=== PATIENT | female | born 1960 | race Caucasian/White ===

== ENCOUNTER 2018-05-21 20:00 | Emergency (ER) | payer OTHER, SELFPAY ==
[2018-05-21 20:15] VITALS: BP 143/82; PULSE 70; RESP 16; TEMP 36.6; O2SAT 99
--- NOTE | 2018-05-21 20:21 | ED.ALLEREA ---
HPI - Allergic Reaction <VIKRAM Rouse - Last Filed: 05/21/18 21:49> General Chief complaint: Allergic Reaction Stated complaint: HORNET STING BY RT EYE Time Seen by Provider: 05/21/18 20:21 History of Present Illness HPI narrative: 58-year-old female here for complaint of having a hornet sting to her right side of the face lateral to her right eye. She states that she has had swelling to the area since she got stung there this morning. She states she has some burning into her right eye. She denies any visual changes. She denies any tightness in his throat no shortness of breath no chest pain. She reports that she has been stung by a hornet over week ago and was treated with oral steroids. She denies any other concerns or complaints at this time. Related Data Home Medications Medication Instructions Recorded Confirmed hydroxyzine HCl 10 mg PO HS PRN #0 06/24/17 05/10/18 cyclosporine [Restasis] 1 drp OPHTH #0 08/29/17 05/10/18 Previous Rx's Medication Instructions Recorded esomeprazole magnesium 40 mg PO QDAY #60 cap 07/14/17 sertraline 50 mg PO QDAY #90 tab 08/22/17 levothyroxine [Synthroid] 50 mcg PO QDAY #90 tab 01/24/18 montelukast 10 mg tablet 10 mg PO QDAY #90 tab 04/25/18 zolpidem 10 mg tablet 10 mg PO .HSP #30 tab 05/08/18 methylprednisolone 4 mg tablets in See Label Instructions PO PER PKG 05/10/18 a dose pack DIR #21 each prednisone 40 mg PO DAILY #4 tab 05/21/18 Allergies Allergy/AdvReac Type Severity Reaction Status Date / Time Sulfa (Sulfonamide Allergy Intermediate RASH WITH Verified 05/10/18 11:30 Antibiotics) SULFA [SULFA (SULFONAMIDE ANTIBIOTICS)] Penicillins [PENICILLINS] Allergy Unknown Verified 05/10/18 11:30 sensitive to narcotics Allergy Intermediate ITCHY Uncoded 02/12/18 12:34 Review of Systems <VIKRAM Rouse - Last Filed: 05/21/18 21:49> Constitutional Denies chills, Denies fever(s), Denies lethargy and Denies weakness Eyes Denies change in vision, Denies eye discharge, Denies irritation and Denies loss of vision ENT Ears, Nose, Mouth, and Throat: Denies change in voice, Denies neck pain and Denies sore throat Cardiovascular Denies dyspnea and Denies dyspnea on exertion Respiratory Denies cough, Denies dyspnea, Denies dyspnea on exertion and Denies wheezing Gastrointestinal Gastrointestinal: Denies abdominal pain, Denies change in bowel habits, Denies diarrhea, Denies nausea and Denies vomiting Genitourinary Denies hematuria, Denies flank pain, Denies urinary incontinence and Denies urinary urgency Musculoskeletal Denies neck pain Integumentary/Breasts Comments: Hornet sting to right face lateral to right eye Neurologic Denies loss of vision and Denies weakness Allergic/Immunologic Denies wheezing Exam <VIKRAM Rouse - Last Filed: 05/21/18 21:49> Initial Vital Signs Initial Vital Signs: Vital Signs Temperature 97.8 F 05/21/18 20:15 Pulse Rate 70 05/21/18 20:15 Respiratory Rate 16 05/21/18 20:15 Blood Pressure 143/82 H 05/21/18 20:15 Pulse Oximetry 99 05/21/18 20:15 Const General: cooperative and well developed Nutritional Appearance: well nourished Orientation: alert, awake, oriented x3 and not confused HENVT Head: other (Erythema and redness to right face lateral to right orbit and to zygomatic area) Mouth: oropharynx normal and moist mucous membranes Eyes Periorbital: periorbital findings abnormal (Swelling to right lateral javi orbital area) right Eyelids: eyelid abnormality (Swelling to right upper eyelid) Conjunctivae: conjunctivae normal Pupils: PERRL EOM: EOM intact bilaterally Resp Effort & Inspection: normal respiratory effort, able to speak in complete sentences, no respiratory distress and no use of accessory muscles Auscultation: clear to auscultation bilaterally, no rales, no rhonchi and no wheezes Cardio Rate: regular rate Rhythm: regular rhythm Heart Sounds: no click, no gallops, no murmurs and no rubs Skin General: no rashes or lesions noted, No jaundice and No petechiae Neuro General: alert, oriented x3, gait normal and no focal motor deficits Speech: speech normal <Kai Francisco DO - Last Filed: 05/22/18 03:44> Initial Vital Signs Initial Vital Signs: Vital Signs Temperature 97.8 F 05/21/18 20:15 Pulse Rate 70 05/21/18 20:15 Respiratory Rate 16 05/21/18 20:15 Blood Pressure 143/82 H 05/21/18 20:15 Pulse Oximetry 99 05/21/18 20:15 Course <VIKRAM Rouse - Last Filed: 05/21/18 21:49> Orders Ordered: Discontinued Medications Prednisone (Deltasone) 40 mg PO NOW ONE Stop: 05/21/18 20:40 Last Admin: 05/21/18 20:48 Dose: 40 mg Vital Signs - 8 hr 05/21/18 20:15 05/21/18 21:22 Temperature 97.8 F Pulse Rate 70 74 Respiratory Rate 16 18 Blood Pressure 143/82 H 120/74 Pulse Oximetry 99 98 <Kai Francisco DO - Last Filed: 05/22/18 03:44> Orders Ordered: Discontinued Medications Prednisone (Deltasone) 40 mg PO NOW ONE Stop: 05/21/18 20:40 Last Admin: 05/21/18 20:48 Dose: 40 mg Vital Signs - 8 hr 05/21/18 20:15 05/21/18 21:22 Temperature 97.8 F Pulse Rate 70 74 Respiratory Rate 16 18 Blood Pressure 143/82 H 120/74 Pulse Oximetry 99 98 MDM - Allergic Reaction <VIKRAM Rouse - Last Filed: 05/21/18 21:49> MDM Narrative Medical decision making narrative: Signs and symptoms limited to localized response to the right face area. No systemic symptoms at this time. She is prescribed prednisone for 3 days to help with inflammation. Patient artery takes Zyrtec will have her continue taking Zyrtec for antihistamine prospects. [id number] ibuprofen as needed for anti inflammation and discomfort. Visual acuity was normal. Cold packs to the area several times a day over the next few days also help with symptoms. Follow up with primary care provider in the next few days for re-evaluation. For any worsening symptoms return to the emergency room. Discharge Plan Departure Patient Disposition: Home, Self-Care Clinical Impression: Right facial swelling, Accidental insect sting Discharge Date/Time: 05/21/18 21:22 Interventions: ED Discharge Assessment Last Done: 05/21/18 21:22 Instructions: How to Care for an Insect Bite or Sting Activity Restrictions/Additional Instructions: Signs and symptoms present as localized response due to the hornet sting that was received earlier today. Use prednisone as prescribed over the next couple of days to help with inflammation. Continue to use her Zyrtec as prescribed as well for antihistamine properties. Use [id number] ibuprofen for anti inflammatory affects and for discomfort. Cold packs to the area several times a day over the next few days to help with symptoms. Follow up with her primary care provider. For any worsening symptoms return to the emergency room. Prescription was electronically sent to [facility] Prescriptions: New prednisone 20 mg tablet 40 mg PO DAILY Qty: 4 RF: 0 No Action methylprednisolone [Medrol (Mg)] 4 mg tablets,dose pack See Label Instructions PO PER PKG DIR Qty: 21 RF: 0 hydroxyzine HCl 10 MG tablet 10 mg PO HS PRNQty: 0 RF: 0 esomeprazole magnesium 20 MG capsule,delayed release(DR/EC) 40 mg PO QDAY Qty: 60 RF: 1 sertraline 50 MG tablet 50 mg PO QDAY Qty: 90 RF: 3 cyclosporine [Restasis] 1 EACH dropperette 1 drp OPHTH Qty: 0 RF: 0 levothyroxine [Synthroid] 50 MCG tablet 50 mcg PO QDAY Qty: 90 RF: 1 montelukast [Singulair] 10 mg tablet 10 mg PO QDAY Qty: 90 RF: 0 zolpidem [Ambien] 10 mg tablet 10 mg PO .HSP Qty: 30 RF: 0 Referrals: Matty Arreguin MD [Primary Care Provider] - <Kai Francisco DO - Last Filed: 05/22/18 03:44> Cosign ED Attending Vernon Attestation: I was immediately available in the department for consultation. Documentation has been reviewed. I agree with assessment and plan.
[2018-05-21] MEDS: predniSONE 20 MG TABLET 40 MG PO (20:48)
[2018-05-21 21:22] VITALS: BP 120/74; PULSE 74; RESP 18; O2SAT 98
== END 2018-05-21 21:22 | disposition home or self-care (01) ==
PROVIDERS: Emergency Provider Nurse Practitioner Family; Family Provider Family Medicine; PCP Family Medicine
DX: T63.441A Toxic effect of venom of bees, accidental (unintentional), initial encounter (principal); R22.0 Localized swelling, mass and lump, head
CPT/HCPCS: 99283

== ENCOUNTER → 2018-12-03 09:25 | Outpatient (CLI) | payer OTHER, SELFPAY | PROVIDERS: Family Provider Family Medicine; PCP Family Medicine; Visit Provider Physician Assistant | DX: R39.9 Unspecified symptoms and signs involving the genitourinary system (principal) | CPT/HCPCS: 87077; 87086; 87186 ==

== ENCOUNTER → 2018-12-11 13:45 | Outpatient (CLI) | payer OTHER, SELFPAY ==
[2018-12-11 14:10] LABS: Influenza A and B by PCR Rapid Negative (Negative)
== END ==
PROVIDERS: Family Provider Family Medicine; Visit Provider Physician Assistant
DX: R68.89 Other general symptoms and signs (principal); R53.83 Other fatigue
CPT/HCPCS: 87400

== ENCOUNTER → 2018-12-11 13:56 | Outpatient (CLI) | payer OTHER, SELFPAY ==
[2018-12-11 14:37] LABS: Add Manual Diff / Slide Review NO; Basophils Absolute Auto 0 /uL (0-100); Basophils Percent Auto 0.5 % (0-2); Eosinophils Absolute Auto 200 /uL (0-450); Hematocrit 42.6 % (36-46); Hemoglobin 14.6 g/dL (12.0-16.0); Lymphocytes Absolute Auto 2000 /uL (1100-4500); Mean Corpuscular HGB Conc 34.1 % (30-36); Mean Corpuscular Hemoglobin 31.3 PG (26-34); Mean Corpuscular Volume 91.6 fL (80-100); Monocytes Absolute Auto 600 /uL (0-900); Monocytes Percent Auto 7.1 % (3-14); Neutrophils Absolute Auto 5500 /uL (1500-7000); Neutrophils Percent Auto 66.4 % (50-75); Platelet Count 383 X10^3/uL (150-400); Red Blood Cell Count 4.66 X10^6/uL (4.0-5.2); Red Cell Distribution Width 12.7 % (11.6-14.8); White Blood Cell Count 8.2 X10^3/uL (4.5-11.0)
[2018-12-11 15:02] LABS: Alanine Aminotransferase 49 IU/L (9-52); Albumin Globulin Ratio 1.3 (1.0-2.8); Alkaline Phosphatase 106 U/L (38-126); Aspartate Aminotransferase 32 IU/L (14-36); BUN Creatinine Ratio 32.5 (6-22); Bilirubin Total 0.3 mg/dL (0.2-1.3); Blood Urea Nitrogen 26 mg/dL (7-17); Calcium 10.2 mg/dL (8.4-10.2); Carbon Dioxide 23 mmol/L (22-32); Chloride 103 mmol/L (98-107); Estimated Glomerular Filt Rate > 60.0 mL/min (>60); Globulin 3.8 g/dL (1.7-4.1); Glucose 95 mg/dL (70-100); HEMOLYSIS < 15 (0-50); Potassium 4.8 mmol/L (3.4-5.1); Sodium 138 mmol/L (137-145); Total Protein 8.8 g/dL (6.3-8.2)
[2018-12-11 15:33] LABS: TSH w/ Reflex to FT4 1.88 uIU/mL (0.47-4.68)
== END ==
PROVIDERS: PCP Student in an Organized Health Care Education/Training Program; Visit Provider Physician Assistant
DX: R53.83 Other fatigue (principal)
CPT/HCPCS: 36415; 80053; 84443; 85025; 87400

== ENCOUNTER → 2020-04-20 08:00 | Outpatient (CLI) | payer OTHER, SELFPAY ==
[2020-04-20 08:47] LABS: Add Manual Diff / Slide Review NO; Basophils Absolute Auto 0 /uL (0-100); Basophils Percent Auto 0.4 % (0-2); Eosinophils Absolute Auto 100 /uL (0-450); Eosinophils Percent Auto 2.5 % (2-4); Hematocrit 41.1 % (36-46); Hemoglobin 14.1 g/dL (12.0-16.0); Lymphocytes Absolute Auto 1600 /uL (1100-4500); Lymphocytes Percent Auto 28.9 % (25-40); Mean Corpuscular HGB Conc 34.2 % (30-36); Mean Corpuscular Hemoglobin 31.7 PG (26-34); Mean Corpuscular Volume 92.7 fL (80-100); Monocytes Absolute Auto 400 /uL (0-900); Monocytes Percent Auto 8.2 % (3-14); Neutrophils Absolute Auto 3200 /uL (1500-7000); Platelet Count 288 X10^3/uL (150-400); Red Blood Cell Count 4.44 X10^6/uL (4.0-5.2); Red Cell Distribution Width 13.1 % (11.6-14.8); White Blood Cell Count 5.4 X10^3/uL (4.5-11.0)
[2020-04-20 09:11] LABS: Alanine Aminotransferase 35 IU/L (<35); Albumin 4.8 g/dL (3.5-5.0); Albumin Globulin Ratio 1.7 (1.0-2.8); Alkaline Phosphatase 65 U/L (38-126); Aspartate Aminotransferase 33 IU/L (14-36); BUN Creatinine Ratio 35.9 (6-22); Bilirubin Total 0.5 mg/dL (0.2-1.3); Blood Urea Nitrogen 23 mg/dL (7-17); Calcium 10.3 mg/dL (8.4-10.2); Carbon Dioxide 24 mmol/L (22-32); Chloride 105 mmol/L (98-107); Estimated Glomerular Filt Rate > 60.0 mL/min (>60); Globulin 2.8 g/dL (1.7-4.1); Glucose 87 mg/dL (80-110); HEMOLYSIS < 15 (0-50); Potassium 4.6 mmol/L (3.4-5.1); Sodium 138 mmol/L (137-145); Total Protein 7.6 g/dL (6.3-8.2)
[2020-04-20 09:27] LABS: Free T4, Direct Thyroxine 0.89 ng/dL (0.78-2.19)
[2020-04-20 09:41] LABS: Thyroid Stimulating Hormone 3.16 uIU/mL (0.47-4.68)
== END ==
PROVIDERS: PCP Family Medicine; Referring Provider Family Medicine; Visit Provider Family Medicine
DX: Z79.899 Other long term (current) drug therapy (principal); E03.9 Hypothyroidism, unspecified
CPT/HCPCS: 36415; 80053; 84439; 84443; 85025

== ENCOUNTER → 2020-11-08 14:43 | Outpatient (CLI) | payer OTHER, SELFPAY | PROVIDERS: PCP Family Medicine; Visit Provider Physician Assistant | DX: N34.3 Urethral syndrome, unspecified (principal) | CPT/HCPCS: 87086 ==

== ENCOUNTER → 2020-11-16 09:19 | Outpatient (CLI) | payer OTHER, SELFPAY | PROVIDERS: PCP Family Medicine; Visit Provider Nurse Practitioner | DX: N34.3 Urethral syndrome, unspecified (principal) | CPT/HCPCS: 87086 ==

== ENCOUNTER → 2021-01-05 09:50 | Outpatient (CLI) | payer OTHER, SELFPAY ==
[2021-01-05 11:51] LABS: Cholesterol 238 mg/dL (140-199); HDL Cholesterol 42 mg/dL (40-60); LDL Cholesterol Calculated 168 mg/dL (<100); Triglycerides 140 mg/dL (35-150)
== END ==
PROVIDERS: PCP Family Medicine; Referring Provider Family Medicine; Visit Provider Family Medicine
DX: Z13.220 Encounter for screening for lipoid disorders (principal)
CPT/HCPCS: 36415; 80061

== ENCOUNTER → 2021-01-10 15:34 | Outpatient (CLI) | payer OTHER, SELFPAY ==
--- NOTE | 2021-01-10 | DI.US.S_ITS ---
PROCEDURE: US ABDOMEN LIMITED INDICATIONS: RUQ PAIN TECHNIQUE: Real-time focused scanning was performed of the abdomen, with image documentation. COMPARISON: None. FINDINGS: Liver is diffusely increased in echogenicity. No focal hepatic abnormalities identified. Normal hepatic size. Focal fatty sparing adjacent to the gallbladder. 5 mm echogenic non mobile gallbladder wall focus likely a polyp.. IMPRESSION: 1. Increased hepatic echogenicity noted possibly related to hepatic steatosis but other sources of hepatocellular disease cannot be excluded. Recommend clinical correlation. 2. Probable 5 mm gallbladder polyp. Dictated by: Roman DODD Interpreted: Marilynn Rodriguez MD on 01/10/2021 at 16:41 Approved by: Marilynn Rodriguez M.D. on 01/10/2021 at 17:02
--- NOTE | 2021-01-10 | DI.MG.S_ITS ---
BILATERAL DIGITAL SCREENING MAMMOGRAM 3D/2D WITH CAD: 01/10/2021 CLINICAL: Routine screening. Comparison is made to exams dated: 06/14/2016 mammogram and 03/09/2013 mammogram - [facility]. The tissue of both breasts is heterogeneously dense. This may lower the sensitivity of mammography. Current study was also evaluated with a Computer Aided Detection (CAD) system. There is an asymmetry in the left breast middle depth lateral region seen on the craniocaudal view only. This is more prominent. No other significant masses, calcifications, or other findings are seen in either breast. IMPRESSION: INCOMPLETE: NEEDS ADDITIONAL IMAGING EVALUATION The asymmetry in the left breast is indeterminate. Additional views with possible ultrasound are recommended. This exam was interpreted at Station ID: [id number]. NOTE: For mammograms, a report in lay terms will be sent to the patient. Approximately 15% of breast malignancies will not be visualized mammographically. In the management of a palpable breast mass, a negative mammogram must not discourage biopsy of a clinically suspicious lesion. Electronically Signed By: Ashok [email or web address]:01/10/2021 17:01:34 copy to: FELIX ESCALONA letter sent: Additional Imaging Needed ACR BI-RADS Category 0: Incomplete [id number]
== END ==
PROVIDERS: PCP Family Medicine; Referring Provider Family Medicine; Visit Provider Family Medicine
DX: Z12.31 Encounter for screening mammogram for malignant neoplasm of breast (principal); R10.11 Right upper quadrant pain
CPT/HCPCS: 76705; 77063; 77067

== ENCOUNTER → 2021-01-20 13:12 | Outpatient (CLI) | payer OTHER, SELFPAY ==
--- NOTE | 2021-01-20 | DI.MG.S_ITS ---
UNILATERAL LEFT DIGITAL DIAGNOSTIC MAMMOGRAM 3D/2D WITH ADDITIONAL VIEWS: 01/20/2021 CLINICAL: Additional evaluation requested from prior study. Comparison is made to exams dated: 01/10/2021 mammogram - [facility], 06/14/2016 mammogram, and 03/09/2013 mammogram - [facility]. The tissue of left breast is heterogeneously dense. This may lower the sensitivity of mammography. There is an asymmetry in the left breast middle depth lateral region seen on the craniocaudal view only. This is less prominent and most likely represents normal fibroglandular tissue. No other significant masses or calcifications are seen in the breast. IMPRESSION: INCOMPLETE: NEEDS ADDITIONAL IMAGING EVALUATION The asymmetry in the left breast likely represents fibroglandular tissue and is indeterminate. An ultrasound is recommended and has been scheduled to immediately follow this exam. This exam was interpreted at Station ID: [id number]. NOTE: For mammograms, a report in lay terms will be sent to the patient. Approximately 15% of breast malignancies will not be visualized mammographically. In the management of a palpable breast mass, a negative mammogram must not discourage biopsy of a clinically suspicious lesion. Electronically Signed By: David Eugene M.D. jr/:01/20/2021 14:27:15 copy to: FELIX ESCALONA letter sent: Additional Imaging Needed ACR BI-RADS Category 0: Incomplete [id number]
--- NOTE | 2021-01-20 | DI.US.S_ITS ---
LIMITED ULTRASOUND OF LEFT BREAST: 01/20/2021 CLINICAL: Additional evaluation requested from prior study. Comparison is made to exams dated: 01/20/2021 mammogram, 01/10/2021 mammogram - [facility], 06/14/2016 mammogram, 03/09/2013 mammogram - [facility], 04/10/2010 mammogram, and 12/25/2005 mammogram - [facility]. Ultrasound of the left breast 11-2 o'clock region was performed. No shadowing mass or suspicious finding. There are two tiny cysts. IMPRESSION: NEGATIVE There is no sonographic evidence of malignancy. Return to annual mammogram screening schedule is recommended. This exam was interpreted at Station ID: [id number]. Electronically Signed By: David Eugene M.D. jr/:01/20/2021 14:26:14 copy to: FELIX ESCALONA letter sent: Normal Exam Ultrasound BI-RADS: 1 Negative
== END ==
PROVIDERS: PCP Family Medicine; Referring Provider Family Medicine; Visit Provider Family Medicine
DX: R92.8 Other abnormal and inconclusive findings on diagnostic imaging of breast (principal)
CPT/HCPCS: 76642; 77065; G0279

== ENCOUNTER 2021-02-24 17:28 | Emergency (ER) | payer OTHER, SELFPAY ==
--- NOTE | 2021-02-24 17:39 | DI.RAD.S_ITS ---
PROCEDURE: XR CHEST 1V INDICATIONS: chest pain TECHNIQUE: One view of the chest was acquired. COMPARISON: [facility], , CHEST 1 VIEW, 10/29/2016, 0:51. FINDINGS: Surgical changes and devices: None. Lungs and pleura: Scattered subsegmental scarring and/or atelectasis. No acute consolidation. No pleural effusions or pneumothorax. Mediastinum: Mediastinal contours appear normal. Heart size is normal. Bones and chest wall: No suspicious bony lesions. Overlying soft tissues appear unremarkable. IMPRESSION: No acute disease. Dictated by: Andre Dunaway M.D. on 02/24/2021 at 18:06 Approved by: Andre Dunaway M.D. on 02/24/2021 at 18:23
[2021-02-24 17:45] VITALS: BP 169/77; PULSE 75; RESP 17; TEMP 36.3; O2SAT 100
--- NOTE | 2021-02-24 17:56 | ED.CHESTPAIN ---
HPI - Chest Pain General Chief Complaint: Chest Pain Stated Complaint: chest pain,Right arm numbness, SOB Time Seen by Provider: 02/24/21 17:55 Source: patient Mode of arrival: Ambulatory Limitations: no limitations History of Present Illness HPI narrative: 61-year-old female nonsmoker with history of hypothyroid and bronchospasm presents with a chief complaint of multiple episodes of chest squeezing and pain over the last month if not more. She denies any exertional component to her symptoms nor does she have radiation of her pain, nausea, vomiting, dizziness, lightheadedness or trouble breathing. She states that seems to be very tightly linked to when she has a stressful day at work. She most recently had discomfort that woke her up at about 3:00 a.m. this morning and lasted few hours. She went through the course of the rest of the day without any ongoing pain. She denies any recent travel, injury, history of blood clot or known cancer. MD complaint: chest pain Onset (ago): month(s) Duration: intermittent Onset: during rest Pain location: left chest Severity: mild Quality: aching Pain radiation: none Relieving factors: nothing Exacerbating factors: nothing Treatments prior to arrival chest pain: none Related Data On Oral Contraceptives: No Home Medications Medication Instructions Recorded Confirmed hydroxyzine HCl 10 mg PO HS PRN #0 06/24/17 11/16/20 Xiidra EYE-BOTH BID 12/03/18 11/16/20 omeprazole 20 mg tablet,delayed 20 mg PO DAILY 12/03/18 11/16/20 release Previous Rx's Medication Instructions Recorded levothyroxine [Synthroid] 50 mcg PO QDAY #90 tab 07/04/18 montelukast 10 mg tablet 10 mg PO QDAY #90 tab 10/17/18 zolpidem 10 mg tablet 10 mg PO BEDTIME #30 tab 11/13/18 sertraline 50 mg tablet 50 mg PO QDAY #30 tab 12/09/18 estradiol 1 mg tablet 1.5 mg PO DAILY #135 tab 09/22/20 hydroxyzine HCl 10 mg tablet 10 mg PO TID-QID PRN #20 tab 11/16/20 Allergies Allergy/AdvReac Type Severity Reaction Status Date / Time Sulfa (Sulfonamide Allergy Intermediate RASH WITH Verified 11/16/20 09:34 Antibiotics) SULFA [SULFA (SULFONAMIDE ANTIBIOTICS)] Penicillins [PENICILLINS] Allergy Unknown Verified 11/16/20 09:34 sensitive to narcotics Allergy Intermediate ITCHY Uncoded 11/16/20 09:34 Review of Systems Constitutional Constitutional: Denies chills, Denies fatigue, Denies fever(s), Denies frequent falls, Denies lethargy and Denies weakness Eyes Eyes: Denies change in vision, Denies eye discharge, Denies irritation and Denies loss of vision ENT Ears, Nose, Mouth, and Throat: Denies change in voice, Denies dizziness, Denies neck pain, Denies sore throat and Denies throat swelling Cardiovascular Cardiovascular: Reports chest pain, Denies irregular heart rhythm, Denies lightheadedness, Denies palpitations, Denies dyspnea, Denies dyspnea on exertion and Denies orthopnea Respiratory Respiratory: Denies cough, Denies dyspnea, Denies dyspnea on exertion and Denies wheezing Gastrointestinal Gastrointestinal: Denies abdominal pain, Denies change in bowel habits, Denies diarrhea, Denies nausea and Denies vomiting Musculoskeletal Musculoskeletal: Denies neck pain and Denies numbness Integumentary/Breasts Skin/Breast: Denies pruritus, Denies erythema, Denies rash and Denies wounds Neurologic Neurologic: Denies behavioral changes, Denies confusion, Denies dizziness, Denies frequent falls, Denies loss of vision, Denies numbness and Denies weakness Psychiatric Psychiatric: Denies anxiety, Denies behavioral changes, Denies confusion, Denies depression, Denies homicidal ideation and Denies suicidal ideation Endocrine Endocrine: Denies fatigue, Denies flushing and Denies palpitations Hematologic/Lymphatic Hematologic/Lymphatic: Denies easy bruising Allergic/Immunologic Allergic/Immunologic: Denies urticaria, Denies throat swelling and Denies wheezing Patient History Medical History Dysuria Hayfever (~1969) Rheumatic fever (1973) Shoulder pain (1999) Subacromial impingement of right shoulder (~2010) Surgical History Anesthesia History of shoulder surgery (2010) History of total hysterectomy with removal of both tubes and ovaries (1991) History of ureter repair (1991) Family History Brother Age: 59 Diabetes mellitus Mental health problem Grandmother Cancer Diabetes mellitus Mother Diabetes mellitus Heart disease Hypertension High cholesterol Mental health problem Stroke Sister Age: 64 Diabetes mellitus Hypertension Father No problems noted. Grandfather No problems noted. Grandfather No problems noted. Grandmother No problems noted. Sister No problems noted. Social History Smoking Status: Never smoker Smoking Status: Never smoker alcohol intake frequency: holidays/special occasions only Substance Use Type: does not use Exam Narrative Exam Narrative: GENERAL: [61] year old patient appears stated age. Well-nourished, well-developed patient, in mild distress. HEAD: Atraumatic. Normocephalic. EYES: Pupils equal round and reactive. Extraocular motions intact. No scleral icterus. No injection or drainage. ENT: Nose without bleeding, purulent drainage. Throat without erythema, tonsillar hypertrophy or exudate. Airway patent. NECK: Trachea midline. Non tender CARDIOVASCULAR: Regular rate and rhythm without murmurs, gallops, or rubs. RESPIRATORY: Clear to auscultation. Breath sounds equal bilaterally. No wheezes, rales, or rhonchi. GASTROINTESTINAL: Abdomen soft, non-tender, nondistended. EXTREMITIES: No edema or joint tenderness. BACK: Nontender without deformity or crepitance. No flank tenderness. NEURO: AOx3. SKIN: No rash or erythema of visible areas Initial Vital Signs Initial Vital Signs: Vital Signs Temperature 97.4 F L 02/24/21 17:45 Pulse Rate 75 02/24/21 17:45 Respiratory Rate 17 02/24/21 17:45 Blood Pressure 169/77 H 02/24/21 17:45 Pulse Oximetry 100 02/24/21 17:45 Course Orders Ordered: ED Orders 02/24/21 17:39 XR chest 1V Stat EKG-12 Lead Stat 02/24/21 17:52 Complete Blood Count AUTO DIFF Stat Comprehensive Metabolic Panel Stat D Dimer Stat Lipase Stat Magnesium Stat Partial Thromboplastin Time Stat Prothrombin Time INR Stat Troponin & CK Cardiac Panel Stat Discontinued Medications Aspirin (Aspirin 81 Mg Chew Tab) 324 mg PO NOW ONE Stop: 02/24/21 18:16 Last Admin: 02/24/21 18:18 Dose: 324 mg Documented by: CAROLIN Vital Signs Vital signs: Vital Signs - 8 hr 02/24/21 17:45 02/24/21 18:20 02/24/21 18:30 Temperature 97.4 F L Pulse Rate 75 75 62 Respiratory Rate 17 16 17 Blood Pressure 169/77 H 116/88 Pulse Oximetry 100 98 97 02/24/21 18:45 02/24/21 19:00 Temperature Pulse Rate 60 63 Respiratory Rate 16 15 Blood Pressure Pulse Oximetry 98 98 MDM - Chest Pain Lab Data Result diagrams: 02/24/21 17:52 02/24/21 17:52 Labs: Lab Results 02/24/21 02/24/21 02/24/21 Range/Units 17:52 17:52 17:52 WBC 6.7 (4.5-11.0) X10^3/uL RBC 4.22 (4.0-5.2) X10^6/uL Hgb 12.9 (12.0-16.0) g/dL Hct 38.4 (36-46) % MCV 91.1 (80-100) fL MCH 30.6 (26-34) PG MCHC 33.6 (30-36) % RDW 13.2 (11.6-14.8) % Plt Count 296 (150-400) X10^3/uL Neut % (Auto) 58.0 (50-75) % Lymph % (Auto) 29.8 (25-40) % [place] % (Auto) 9.9 (3-14) % Eos % (Auto) 1.9 L (2-4) % Baso % (Auto) 0.4 (0-2) % Neut # (Auto) 3900 (9387-9176) /uL Lymph # (Auto) 2000 (6706-2767) /uL [place] # (Auto) 700 (0-900) /uL Eos # (Auto) 100 (0-450) /uL Baso # (Auto) 0 (0-100) /uL PT 11.9 (10.1-12.7) SECONDS INR 1.0 (0.9-1.3) APTT 37 H (26.4-36.2) SECONDS D-Dimer (<230) ng/mL Sodium 142 (137-145) mmol/L Potassium 4.5 (3.4-5.1) mmol/L Chloride 106 (98-107) mmol/L Carbon Dioxide 25 (22-32) mmol/L BUN 21 H (7-17) mg/dL Creatinine 0.61 (0.52-1.04) mg/dL Estimated GFR > 60.0 (>60) mL/min BUN/Creatinine Ratio 34.4 H (6-22) Glucose 113 H (80-110) mg/dL Calcium 9.9 (8.4-10.2) mg/dL Magnesium 2.1 (1.6-2.3) mg/dL Total Bilirubin 0.3 (0.2-1.3) mg/dL AST 35 (14-36) IU/L ALT 24 (<35) IU/L Alkaline Phosphatase 43 (38-126) U/L Total Creatine Kinase 121 (30-135) U/L CK-MB (CK-2) 2.32 (<2.37) ng/mL CK-MB (CK-2) Rel Index 1.9 (1.5-5.0) % Troponin I < 0.012 (0.01-0.034) ng/mL Total Protein 7.7 (6.3-8.2) g/dL Albumin 4.8 (3.5-5.0) g/dL Globulin 2.9 (1.7-4.1) g/dL Albumin/Globulin Ratio 1.7 (1.0-2.8) Lipase 135 (23-300) U/L // Range/Units 17:52 WBC (4.5-11.0) X10^3/uL RBC (4.0-5.2) X10^6/uL Hgb (12.0-16.0) g/dL Hct (36-46) % MCV (80-100) fL MCH (26-34) PG MCHC (30-36) % RDW (11.6-14.8) % Plt Count (150-400) X10^3/uL Neut % (Auto) (50-75) % Lymph % (Auto) (25-40) % [place] % (Auto) (3-14) % Eos % (Auto) (2-4) % Baso % (Auto) (0-2) % Neut # (Auto) (4496-9872) /uL Lymph # (Auto) (5636-6489) /uL [place] # (Auto) (0-900) /uL Eos # (Auto) (0-450) /uL Baso # (Auto) (0-100) /uL PT (10.1-12.7) SECONDS INR (0.9-1.3) APTT (26.4-36.2) SECONDS D-Dimer < 200 (<230) ng/mL Sodium (137-145) mmol/L Potassium (3.4-5.1) mmol/L Chloride (98-107) mmol/L Carbon Dioxide (22-32) mmol/L BUN (7-17) mg/dL Creatinine (0.52-1.04) mg/dL Estimated GFR (>60) mL/min BUN/Creatinine Ratio (6-22) Glucose (80-110) mg/dL Calcium (8.4-10.2) mg/dL Magnesium (1.6-2.3) mg/dL Total Bilirubin (0.2-1.3) mg/dL AST (14-36) IU/L ALT (<35) IU/L Alkaline Phosphatase (38-126) U/L Total Creatine Kinase (30-135) U/L CK-MB (CK-2) (<2.37) ng/mL CK-MB (CK-2) Rel Index (1.5-5.0) % Troponin I (0.01-0.034) ng/mL Total Protein (6.3-8.2) g/dL Albumin (3.5-5.0) g/dL Globulin (1.7-4.1) g/dL Albumin/Globulin Ratio (1.0-2.8) Lipase (23-300) U/L Imaging Data Chest x-ray: Radiologist's Impression: Myla Perez Ifeoma 61 F [address] [id number] ReportSigned Patient: Myla Perez LMR#: [id number]: [id number]:[id number]/Sex: 61 / FDate of Service: 02/24/21Loc: EDAccession Number: [id number] Procedure: XR chest 1V Ordering Provider: Evelia Ramírez D.O. PROCEDURE: XR CHEST 1V INDICATIONS: chest pain TECHNIQUE: One view of the chest was acquired. COMPARISON: [facility], , CHEST 1 VIEW, 10/29/2016, 0:51. FINDINGS: Surgical changes and devices: None. Lungs and pleura: Scattered subsegmental scarring and/or atelectasis. No acute consolidation. No pleural effusions or pneumothorax. Mediastinum: Mediastinal contours appear normal. Heart size is normal. Bones and chest wall: No suspicious bony lesions. Overlying soft tissues appear unremarkable. IMPRESSION: No acute disease. Dictated by: Andre Dunaway M.D. on 02/24/2021 at 18:06 Approved by: Andre Dunaway M.D. on 02/24/2021 at 18:23 [facility] Narrative Medical decision making narrative: Multiple causes of chest pain considered including [place], PE, pneumothorax, pneumonia, aortic dissection, and pleurisy. Patient reports no radiation, no diaphoresis, no provocation with exertion, and no vomiting Patient's symptoms improved over duration of stay with above-stated therapies. Findings and discharge diagnosis discussed with patient/family followed by verbalization of understanding Return precautions discussed with patient/family whom verbalize understanding. Discharge Plan Departure Patient Disposition: Home Clinical Impression: Atypical chest pain, Chronic interstitial cystitis Instructions: DI for Atypical Chest Pain Activity Restrictions/Additional Instructions: *You have been diagnosed with [atypical chest pain. Your physical exam, lab work, EKG and x-ray are very reassuring] *What to do: *Take medications as directed *Follow up with your primary care provider in 2-3 days, call for an appointment. Let them know you were seen in the Emergency Department and that we ask that you be seen in follow up *Return to ER if you should have any new, worsening or concerning symptoms, such as [more persistent discomfort, shortness of breath, fever greater than 101 F, trouble with exertion or other bothersome symptoms] Prescriptions: No Action Xiidra EYE-BOTH BID RF: 0 omeprazole 20 mg tablet,delayed release (DR/EC) 20 mg PO DAILY RF: 0 hydroxyzine HCl 10 mg tablet 10 mg PO TID-QID PRN (Reason: bladder spasms) Qty: 20 RF: 0 hydroxyzine HCl 10 MG tablet 10 mg PO HS PRNQty: 0 RF: 0 levothyroxine [Synthroid] 50 mcg tablet 50 mcg PO QDAY Qty: 90 RF: 3 montelukast [Singulair] 10 mg tablet 10 mg PO QDAY Qty: 90 RF: 1 zolpidem [Ambien] 10 mg tablet 10 mg PO BEDTIME Qty: 30 RF: 0 sertraline 50 mg tablet 50 mg PO QDAY Qty: 30 RF: 0 estradiol 1 mg tablet 1.5 mg PO DAILY Qty: 135 RF: 1 Referrals: Matty Arreguin MD [Primary Care Provider] -
[2021-02-24 18:00] LABS: Add Manual Diff / Slide Review NO; Basophils Absolute Auto 0 /uL (0-100); Basophils Percent Auto 0.4 % (0-2); Eosinophils Absolute Auto 100 /uL (0-450); Eosinophils Percent Auto 1.9 % (2-4); Hematocrit 38.4 % (36-46); Hemoglobin 12.9 g/dL (12.0-16.0); Lymphocytes Absolute Auto 2000 /uL (1100-4500); Lymphocytes Percent Auto 29.8 % (25-40); Mean Corpuscular HGB Conc 33.6 % (30-36); Mean Corpuscular Hemoglobin 30.6 PG (26-34); Mean Corpuscular Volume 91.1 fL (80-100); Monocytes Absolute Auto 700 /uL (0-900); Monocytes Percent Auto 9.9 % (3-14); Neutrophils Absolute Auto 3900 /uL (1500-7000); Platelet Count 296 X10^3/uL (150-400); Red Blood Cell Count 4.22 X10^6/uL (4.0-5.2); Red Cell Distribution Width 13.2 % (11.6-14.8); White Blood Cell Count 6.7 X10^3/uL (4.5-11.0)
[2021-02-24 18:08] LABS: Prothrombin Time 11.9 SECONDS (10.1-12.7)
[2021-02-24 18:11] LABS: PTT Partial Thromboplastin Tim 37 SECONDS (26.4-36.2)
[2021-02-24 18:14] LABS: Alanine Aminotransferase 24 IU/L (<35); Albumin 4.8 g/dL (3.5-5.0); Albumin Globulin Ratio 1.7 (1.0-2.8); Alkaline Phosphatase 43 U/L (38-126); Aspartate Aminotransferase 35 IU/L (14-36); BUN Creatinine Ratio 34.4 (6-22); Bilirubin Total 0.3 mg/dL (0.2-1.3); Blood Urea Nitrogen 21 mg/dL (7-17); Calcium 9.9 mg/dL (8.4-10.2); Carbon Dioxide 25 mmol/L (22-32); Chloride 106 mmol/L (98-107); Creatine Kinase 121 U/L (30-135); Estimated Glomerular Filt Rate > 60.0 mL/min (>60); Globulin 2.9 g/dL (1.7-4.1); Glucose 113 mg/dL (80-110); Lipase 135 U/L (23-300); Magnesium 2.1 mg/dL (1.6-2.3); Sodium 142 mmol/L (137-145); Total Protein 7.7 g/dL (6.3-8.2)
[2021-02-24] MEDS: ASPIRIN 81 MG CHEW TAB 324 MG PO (18:18)
[2021-02-24 18:19] LABS: HEMOLYSIS 74 (0-50); Potassium 4.5 mmol/L (3.4-5.1)
[2021-02-24 18:20] VITALS: PULSE 75; RESP 16; O2SAT 98
[2021-02-24 18:24] LABS: D Dimer < 200 ng/mL (<230)
[2021-02-24 18:25] LABS: Troponin I < 0.012 ng/mL (0.01-0.034)
[2021-02-24 18:29] LABS: CKMB % Relative Index 1.9 % (1.5-5.0); Creatine Kinase MB 2.32 ng/mL (<2.37)
[2021-02-24 18:30] VITALS: BP 116/88; PULSE 62; RESP 17; O2SAT 97
[2021-02-24 18:45] VITALS: PULSE 60; RESP 16; O2SAT 98
[2021-02-24 19:00] VITALS: PULSE 63; RESP 15; O2SAT 98
== END 2021-02-24 19:05 | disposition home or self-care (01) ==
PROVIDERS: Emergency Medicine; Emergency Provider Emergency Medicine; PCP Family Medicine
DX: R07.89 Other chest pain (principal); N30.10 Interstitial cystitis (chronic) without hematuria
CPT/HCPCS: 36415; 71045; 80053; 82550; 82553; 83690; 83735; 84484; 85025; 85379; 85610; 85730; 93005; 93010; 99284

== ENCOUNTER → 2021-08-25 11:02 | Outpatient (CLI) | payer OTHER, SELFPAY ==
[2021-08-27 11:32] LABS: COVID19 Sendout Not Detected (Not Detect)
== END ==
PROVIDERS: PCP Family Medicine; Visit Provider Nurse Practitioner
DX: Z20.822 Contact with and (suspected) exposure to COVID-19 (principal)
CPT/HCPCS: 87635

== ENCOUNTER → 2021-09-20 09:37 | Outpatient (CLI) | payer OTHER, SELFPAY ==
[2021-09-20 10:27] LABS: COVID19 -Nasal RAPID Negative (Negative)
== END ==
PROVIDERS: PCP Family Medicine; Referring Provider Nurse Practitioner Family; Visit Provider Nurse Practitioner Family
DX: Z20.822 Contact with and (suspected) exposure to COVID-19 (principal); J31.2 Chronic pharyngitis
CPT/HCPCS: 87070; 87635

== ENCOUNTER → 2022-12-24 09:24 | Outpatient (CLI) | payer OTHER, SELFPAY | PROVIDERS: PCP Family Medicine; Visit Provider Physician Assistant | DX: N39.0 Urinary tract infection, site not specified (principal) | CPT/HCPCS: 87077; 87086; 87186 ==

== ENCOUNTER 2023-05-02 05:07 | Emergency (ER) | payer OTHER, SELFPAY ==
[2023-05-02 05:17] VITALS: BP 135/72; PULSE 81; RESP 18; TEMP 36; O2SAT 95; BMI 28.1
--- NOTE | 2023-05-02 05:18 | ED.GENADULT ---
HPI - General Adult General Chief complaint: Urogenital-Female Stated complaint: UTI Time Seen by Provider: 05/02/23 05:08 History of Present Illness HPI narrative: 63-year-old female nonsmoker with history of interstitial cystitis and prior urinary tract infections presents with a chief complaint of about 24 hours of dysuria, frequency and urgency. She states she is had multiple urine infections in his feels similar. She denies any fever or chills. She has not nausea, vomiting or diarrhea. She does have some mild right-sided flank pain. She states she generally tolerates ciprofloxacin well Related Data Home Medications Medication Instructions Recorded Confirmed Xiidra EYE-BOTH BID 12/03/18 09/20/21 omeprazole 20 mg tablet,delayed 20 mg PO DAILY 12/03/18 09/20/21 release sertraline 50 mg tablet 100 mg PO QDAY 04/05/21 09/20/21 Previous Rx's Medication Instructions Recorded levothyroxine 50 mcg tablet 50 mcg PO QDAY #90 tabs 07/04/18 (Synthroid) montelukast 10 mg tablet 10 mg PO QDAY #90 tabs 10/17/18 (Singulair) zolpidem 10 mg tablet (Ambien) 10 mg PO BEDTIME insomnia #30 tabs 11/13/18 hydroxyzine HCl 10 mg tablet 10 mg PO TID-QID PRN bladder 11/16/20 spasms #20 tabs estradiol 1 mg tablet See Rx Instructions .Route 03/30/22 .COMPLEX #135 tabs ciprofloxacin HCl 250 mg tablet 250 mg PO BID #14 tabs 12/24/22 ciprofloxacin HCl 500 mg tablet 500 mg PO BID #20 tabs 05/02/23 fluconazole 150 mg tablet 150 mg PO Q3D 2 doses #2 tabs 05/02/23 Allergies Allergy/AdvReac Type Severity Reaction Status Date / Time Sulfa (Sulfonamide Allergy Intermediate RASH WITH Verified 09/20/21 09:36 Antibiotics) SULFA [SULFA (SULFONAMIDE ANTIBIOTICS)] Penicillins [PENICILLINS] Allergy Unknown Verified 09/20/21 09:36 sensitive to narcotics Allergy Intermediate ITCHY Uncoded 09/20/21 09:36 Review of Systems Review of Systems Narrative: GENERAL: See HPI HEENT: Denies sinus pain, ear pain, sore throat, difficulty swallowing, dizziness. RESPIRATORY: Denies dyspnea, cough, wheezing, hemoptysis, sputum. CARDIOVASCULAR: Denies chest pain, palpitations, orthopnea, edema, GASTROINTESTINAL: Denies nausea, vomiting, abdominal pain, diarrhea, constipation, melena. : See HPI MUSCULOSKELETAL: denies weakness, joint pain, or bony pain SKIN: Denies rash, skin lesions, or other NEUROLOGIC: Denies weakness, headache, numbness, change in speech, confusion, seizures, incoordination. PSYCHIATRIC: No concerning psychosocial issues. 12 point review of systems is negative except for those stated above Patient History Medical History Dysuria Hayfever (~1969) Rheumatic fever (1973) Shoulder pain (1999) Subacromial impingement of right shoulder (~2010) Surgical History Anesthesia History of shoulder surgery (2010) History of total hysterectomy with removal of both tubes and ovaries (1991) History of ureter repair (1991) Family History Brother Age: 61 Diabetes mellitus Mental health problem Grandmother Cancer Diabetes mellitus Mother Diabetes mellitus Heart disease Hypertension High cholesterol Mental health problem Stroke Sister Age: 66 Diabetes mellitus Hypertension Father No problems noted. Grandfather No problems noted. Grandfather No problems noted. Grandmother No problems noted. Sister No problems noted. Social History Smoking Status: Never smoker Smoking Status: Never smoker alcohol intake frequency: holidays/special occasions only Substance Use Type: does not use Exam Narrative Exam Narrative: GEN: AOx3 and in mild distress EYES: Pupils are equal, round, and reactive to light and accommodation. Extraoccular muscles are intact bilaterally. There is no subconjunctival hemorrhage or exudate. CHEST: Lungs are clear to auscultation bilaterally and free of wheezes, rales, or rhonchi. Heart rate is regular rhythm, there are no murmurs, clicks, rubs, or gallops. There is no chest wall tenderness. ABD: Abdomen is soft and nontender. There is no guarding or rebound. Bowel sounds are normal in all 4 quadrants. There is no mass or organomegaly. EXT: Full painless ROM of all extremities with no loss of sensation or strength. BACK: Mild R CVA Tenderness SKIN: Warm, pink, and dry. No erythema or rash Initial Vital Signs Initial Vital Signs: Vital Signs Temperature 96.8 F L 05/02/23 05:17 Pulse Rate 81 05/02/23 05:17 Respiratory Rate 18 05/02/23 05:17 Blood Pressure 135/72 05/02/23 05:17 Pulse Oximetry 95 05/02/23 05:17 Oxygen Delivery Method Room Air 05/02/23 05:17 Course Orders Ordered: ED Orders 05/02/23 05:17 Urine Culture Stat Urine Microscopic Stat Discontinued Medications Ciprofloxacin (Ciprofloxacin 250 Mg Tablet) 500 mg PO NOW ONE Stop: 05/02/23 05:47 Last Admin: 05/02/23 05:49 Dose: 500 mg Vital Signs Vital signs: Vital Signs - 8 hr 05/02/23 05:17 Temperature 96.8 F L Pulse Rate 81 Respiratory Rate 18 Blood Pressure 135/72 Pulse Oximetry 95 Oxygen Delivery Method Room Air Medical Decision Making Lab Data Labs: Urine Dip Bedside Urine Glucose Negative Bedside Urine Bilirubin - Negative Bedside Urine Ketone - Negative Urine Specific [place] 1.025 Bedside Urine Occult Blood +++ Bedside Urine pH 6 Bedside Urine Protein + 30 Bedside Urine Urobilinogen - Negative Bedside Urine Nitrite + Positive Bedside Urine Leukocytes +++ 500 Esterase Point of care testing: Urine Dip Bedside Urine Glucose Negative Bedside Urine Bilirubin - Negative Bedside Urine Ketone - Negative Urine Specific [place] 1.025 Bedside Urine Occult Blood +++ Bedside Urine pH 6 Bedside Urine Protein + 30 Bedside Urine Urobilinogen - Negative Bedside Urine Nitrite + Positive Bedside Urine Leukocytes +++ 500 Esterase MDM Narrative Medical decision making narrative: [63] year old patient presents with UTI symptoms Multiple etiologies for patient's symptoms considered including, but not limited to: [Cystitis versus pyelonephritis versus other] Prior Charts reviewed in our EMR Primary Historian: patient Labs reviewed and interpreted by myself: Urine convincing for UTI Patient's symptoms improved over duration of stay with above-stated therapies. Findings and discharge diagnosis discussed with patient/family followed by verbalization of understanding Return precautions discussed with patient/family whom verbalize understanding of diagnosis and plan Discharge Plan Departure Patient Disposition: Home Clinical Impression: UTI (urinary tract infection) Instructions: DI for Kidney Infection Activity Restrictions/Additional Instructions: *You have been diagnosed with [urinary tract infection with possible early kidney involvement] *What to do: *Please continue to take your regular medications as directed. [x ] New medication prescriptions sent to your pharmacy: [[facility] in [place] ] [ ] New medication written as a paper prescription [ ] No new medications given *Please follow up with your primary care provider in 2-3 days, call for an appointment. Let them know you were seen in the Emergency Department and that we ask that you be seen in follow up. We will electronically transmit a record of today's note if your PCP is in our system *If you do not have a primary care provider please contact the [facility] Resource line at [phone]. They will ask some questions about your medical history and help get you set up with a doctor in the community. *Return to Emergency Department if you should have any new, worsening or concerning symptoms, such as [fever greater than 101 F, shaking chills, worsening pain, persistent vomiting or other bothersome symptoms] Prescriptions: New fluconazole 150 mg tablet 150 mg PO Q3D Qty: 2 0RF Rx Instructions: may repeat second dose 72 hrs after first dose if symptoms persist ciprofloxacin HCl 500 mg tablet 500 mg PO BID Qty: 20 0RF No Action Xiidra EYE-BOTH BID omeprazole 20 mg tablet,delayed release (DR/EC) 20 mg PO DAILY hydroxyzine HCl 10 mg tablet 10 mg PO TID-QID PRN (Reason: bladder spasms) Qty: 20 0RF ciprofloxacin HCl 250 mg tablet 250 mg PO BID Qty: 14 0RF Rx Instructions: Do not take hydroxyzine with this medication. levothyroxine [Synthroid] 50 mcg tablet 50 mcg PO QDAY Qty: 90 3RF montelukast [Singulair] 10 mg tablet 10 mg PO QDAY Qty: 90 1RF Rx Instructions: PT NEEDS TO SCHEDULE APPT BEFORE NEXT RENEWAL zolpidem [Ambien] 10 mg tablet 10 mg PO BEDTIME Qty: 30 0RF estradiol 1 mg tablet See Rx Instructions .ROUTE .COMPLEX Qty: 135 1RF Dose Instruction: TAKE ONE AND ONE-HALF TABLETS BY MOUTH DAILY FOR HORMONE REPLACEMENT Rx Instructions: TAKE ONE AND ONE-HALF TABLETS BY MOUTH DAILY FOR HORMONE REPLACEMENT sertraline 50 mg tablet 100 mg PO QDAY Rx Instructions: Take one tablet by mouth once a day. Referrals: Matty Arreguin MD [Primary Care Provider] - Stand Alone Forms: Patient Portal/API
[2023-05-02] MEDS: CIPROFLOXACIN 250 MG TABLET 500 MG PO (05:49)
[2023-05-02 06:00] LABS: Bacteria Urine Many (>30); RBC Urine None Seen (0-5/HPF); WBC Urine >100/HPF (0-5/HPF)
[2023-05-02 06:01] LABS: Squamous Epithelial Cell Urine 0-1 /HPF (0-5/HPF); Transitional Epi Cells Urine 0-1/HPF (0-5/HPF)
== END 2023-05-02 06:02 | disposition home or self-care (01) ==
PROVIDERS: Emergency Provider Emergency Medicine; PCP Family Medicine
DX: N39.0 Urinary tract infection, site not specified (principal)
CPT/HCPCS: 81003; 81015; 87077; 87086; 87186; 99283

== ENCOUNTER → 2023-05-22 12:23 | Outpatient (CLI) | payer OTHER, SELFPAY | PROVIDERS: PCP Family Medicine; Visit Provider Nurse Practitioner Family | DX: R30.0 Dysuria (principal) | CPT/HCPCS: 87086 ==